=== PATIENT | female | born 1950 | race Caucasian/White ===

== ENCOUNTER → 2017-01-06 | Outpatient (CLI) | payer OTHER ==
[~2017-01-06] MED LIST: ABL5 PO; ALBU0.5N2 NEB; ALBU1AER9 INH; AMB5 PO; DIGO0.1216 PO; HYDR25TA4 PO; POTA10TA PO; TPRSR/25 PO; TPRSR/50 PO; TRAZ-120 PO; WARF7.5T PO; WLLXL300 PO
--- NOTE | 2017-01-06 12:39 | DIAGNOSTIC IMAGING REPORT ---
RIGHT KNEE 4 OR MORE VIEWS CLINICAL HISTORY: CHRONIC PAIN OF BOTH KNEES Right COMPARISON: None. DISCUSSION: Significant degenerative change all major joint compartments. Moderate reactive osteophytic change. No acute bony abnormality. There is no evidence for soft tissue swelling. IMPRESSION: Moderate rather significant degenerative change all major joint compartments. Electronically signed by: Philippe Mahajan M.D. 01/06/2017 12:37 PM Dictated Date/Time: 01/06/2017 12:37 PM
--- NOTE | 2017-01-06 12:39 | DIAGNOSTIC IMAGING REPORT ---
LEFT KNEE 4 OR MORE VIEWS CLINICAL HISTORY: CHRONIC PAIN OF BOTH KNEES COMPARISON: None. DISCUSSION: Moderate degenerative change medial joint compartment. No acute bony antibody. No evidence for fracture or dislocation. There is no evidence for soft tissue swelling. IMPRESSION: Moderate degenerative change medial joint compartment. Electronically signed by: Philippe Mahajan M.D. 01/06/2017 12:38 PM Dictated Date/Time: 01/06/2017 12:38 PM
== END | disposition home or self-care (01) ==
LOC: C.RAD 12:01
PROVIDERS: ATTEND Physician Assistant
DX: G89.29 Other chronic pain (principal); M25.561 Pain in right knee; M25.562 Pain in left knee

== ENCOUNTER → 2017-02-14 | Outpatient (CLI) | payer OTHER ==
[~2017-02-14] MED LIST changes: -TRAZ-120 PO; +TRAZ1TAB5 PO
[2017-02-14 18:16] LABS: BLOOD UREA NITROGEN 14 mg/dl (7-18); BUN/CREATININE RATIO 17.7 (10-20); CALCIUM 8.7 mg/dl (8.5-10.1); CARBON DIOXIDE 31 mmol/L (21-32); CHLORIDE 107 mmol/L (98-107); CREATININE 0.81 mg/dl (0.60-1.20); GLUCOSE 76 mg/dl (70-99); MAGNESIUM 2.1 mg/dl (1.8-2.4); POTASSIUM 3.9 mmol/L (3.5-5.1); SODIUM 140 mmol/L (136-145)
== END | disposition home or self-care (01) ==
LOC: C.LAB 17:37
PROVIDERS: ATTEND Internal Medicine Cardiovascular Disease
DX: I48.0 Paroxysmal atrial fibrillation (principal)

== ENCOUNTER → 2017-02-21 | Outpatient (CLI) | payer OTHER | END | disposition home or self-care (01) | LOC: C.PAPS 15:02 | PROVIDERS: ATTEND Obstetrics & Gynecology | DX: Z12.4 Encounter for screening for malignant neoplasm of cervix (principal) ==

== ENCOUNTER → 2017-03-28 | Outpatient (CLI) | payer OTHER ==
--- NOTE | 2017-03-28 13:49 | MAMMOGRAPHY REPORT ---
BILATERAL DIGITAL SCREENING MAMMOGRAM TOMOSYNTHESIS WITH CAD: 03/28/2017 CLINICAL HISTORY: Routine screening. Patient has no complaints. TECHNIQUE: Breast tomosynthesis in addition to standard 2D mammography was performed. Current study was also evaluated with a Computer Aided Detection (CAD) system. COMPARISON: Comparison is made to exams dated: 12/16/2013 mammogram, 03/22/2016 mammogram, 12/12/2012 m ammogram, 12/11/2011 mammogram, 11/30/2010 mammogram, and 11/29/2009 mammogram - [facility] enter. BREAST COMPOSITION: There are scattered areas of fibroglandular density in both breasts. FINDINGS: No suspicious masses, calcifications, or areas of architectural distortion are noted in ei ther breast. There has been no significant interval change compared to prior exams. IMPRESSION: ACR BI-RADS CATEGORY 1: NEGATIVE There is no mammographic evidence of malignancy. A 1 year screening mammogram is recommended. The pa tient will receive written notification of the results. Approximately 10% of breast cancers are not detected with mammography. A negative mammographic report should not delay biopsy if a clinically suggestive mass is present. Alecia Leslie M.D. /:03/28/2017 11:43:58 Audiology Technician: Margi Ricci, M, [facility] letter sent: Normal 1/2 BI-RADS Code: ACR BI-RADS Category 1: Negative
== END | disposition home or self-care (01) ==
LOC: C.MAMM 08:20
PROVIDERS: ATTEND Obstetrics & Gynecology
DX: Z12.31 Encounter for screening mammogram for malignant neoplasm of breast (principal)